=== PATIENT | female | born 1965 | race Caucasian/White ===

== ENCOUNTER 2021-09-13 08:14 | Outpatient (CLI) | payer BC | END 2021-09-13 08:15 | disposition home or self-care (01) | LOC: CSHMAMMO 08:14 | DX: Z12.31 Encounter for screening mammogram for malignant neoplasm of breast (principal) | CPT/HCPCS: 77063; 77067 ==

== ENCOUNTER → 2022-09-19 08:56 | Outpatient (CLI) | payer BC | END | disposition home or self-care (01) | LOC: CSHMAMMO 08:56 | PROVIDERS: ATTEND Family Medicine | DX: Z12.31 Encounter for screening mammogram for malignant neoplasm of breast (principal); Q83.8 Other congenital malformations of breast | CPT/HCPCS: 77063; 77067 ==

== ENCOUNTER 2022-09-22 08:29 | Outpatient (CLI) | payer BC | END 2022-09-22 08:30 | disposition home or self-care (01) | LOC: CSHULT 08:29 | PROVIDERS: ATTEND Family Medicine | DX: Q83.8 Other congenital malformations of breast (principal) | CPT/HCPCS: G0279 ==

== ENCOUNTER 2023-10-18 09:42 | Outpatient (CLI) | payer BC | END 2023-10-18 09:43 | disposition home or self-care (01) | LOC: CSHMAMMO 09:42 | PROVIDERS: ATTEND Family Medicine | DX: Z12.31 Encounter for screening mammogram for malignant neoplasm of breast (principal) | CPT/HCPCS: 77063; 77067 ==